=== PATIENT | male | born 1955 | race Caucasian/White ===

== ENCOUNTER 2017-12-03 11:44 | Observation (INO) ==
--- NOTE | 2017-12-03 11:56 | Emergency Department Note ---
Disposition Clinical Impression: Acute and chronic respiratory failure with hypercapnia COPD (chronic obstructive pulmonary disease) Qualifiers: COPD type: COPD with acute exacerbation Qualified Code(s): J44.1 - Chronic obstructive pulmonary disease with (acute) exacerbation Disposition: Admitted As Inpatient Condition: Fair SOB HPI - General Chief Complaint: ED Shortness of Breath/Dyspnea Stated Complaint: Low O2 Source: patient, family, EMS Mode of arrival: EMS Limitations: no limitations Nursing Notes Reviewed: Yes Vital Signs Reviewed: Yes - History of Present Illness Patient presents to the ED via EMS with report of being more short of breath and lethargic over the past several days according to his . She states that he has not been wearing his 2 L of oxygen continuously or wearing his BiPAP over the past 3 days. She has noticed his breathing has become more labored and has gotten progressively more lethargic. is also concerned because patient had a high ammonia level a few days ago when he had outpatient labs performed [facility] the [facility] and was just started back on lactulose. She states he was just admitted to the [facility] in [place] 3 weeks ago after COPD exacerbation. He said several admissions earlier this year for pneumonia and COPD exacerbations as well with similar presentations. He has a history of CHF along with COPD, diabetes, cirrhosis CAD and hypertension. Patient himself states he simply "feels bad". He specifically denies any shortness of breath or chest pain. No lightheadedness or dizziness. No abdominal pain, nausea, vomiting or diarrhea. He denies any fever or chills. No recent travel or sick contacts. Per EMS patient's oxygen saturations were in the 70s on room air when they arrived. He was put on 3 L of oxygen with improvement into the low 90s by the time he arrived in the ED. - Related Data Home Medications Medication Instructions Recorded Confirmed Cholecalciferol (Vitamin D3) 1,000 unit PO BID 09/19/15 12/03/17 [Vitamin D3] Magnesium 400 mg PO BID 09/19/15 12/03/17 Cyanocobalamin (Vitamin B-12) 1,000 mcg PO BID 10/07/16 12/03/17 [Vitamin B12] Loratadine [Allergy Relief] 10 mg PO DAILY 10/07/16 12/03/17 Omeprazole 20 mg PO DAILY 10/07/16 12/03/17 Tiotropium [Spiriva] 18 mcg IH DAILY 10/07/16 12/03/17 Albuterol Sulfate [Ventolin Hfa] 1 puff IH Q4H PRN 10/08/16 12/03/17 Lactulose 10 gm PO DAILY PRN 10/08/16 12/03/17 Multivitamin-Min/Iron/FA/Vit K 1 each PO DAILY 10/08/16 12/03/17 [Multi-Day Plus Minerals Tablet] levETIRAcetam [Keppra] 250 mg PO Q12H 05/01/17 12/03/17 Lisinopril [Zestril] 10 mg PO DAILY 06/18/17 12/03/17 Memantine HCl 10 mg PO BID 08/30/17 12/03/17 Oxycodone HCl [Oxaydo] 5 mg PO Q6H 08/30/17 12/03/17 Potassium Gluconate [Potassium] 99 mg PO DAILY 08/30/17 12/03/17 Zinc Sulfate [Zinc-15] 66 mg PO BID 08/30/17 12/03/17 Previous Rx's Medication Instructions Recorded Budesonide/Formoterol 80/4.5 2 puff IH BIDR #2 inhaler 09/21/15 [Symbicort 80/4.5] Aspirin 81 mg PO DAILY tab.chew 03/11/17 Atorvastatin [Lipitor] 40 mg PO HS tablet 03/11/17 Bisacodyl [Dulcolax] 10 mg PO DAILY PRN tablet 03/11/17 Metoprolol [Lopressor] 75 mg PO BID tablet 03/11/17 Furosemide [Lasix] 20 mg PO DAILY PRN #30 tablet 06/24/17 Insulin DETEMIR [Levemir] 25 unit SQ BID [id number] 06/24/17 Allergies Allergy/AdvReac Type Severity Reaction Status Date / Time No Known Allergies Allergy Verified 09/19/15 17:09 Constitutional: Denies: fever, chills, weakness, weight change Eyes: Denies: eye pain, eye discharge, vision change ENT ED: Denies: ear pain, throat pain, dental pain, hearing loss, epistaxis, congestion, dysphagia Cardiovascular: Denies: chest pain, palpitations, dyspnea on exertion, edema, syncope Respiratory: Reports: dyspnea. Denies: cough, wheezes, hemoptysis, stridor Gastrointestinal: Denies: abdominal pain, nausea, vomiting, diarrhea, constipation, hematemesis, melena, hematochezia Genitourinary: Denies: urgency, dysuria, frequency, hematuria Musculoskeletal: Denies: back pain, neck pain, arthralgia, myalgia Integumentary: Denies: rash, abrasion, lesions Neurological: Reports: as per HPI, other (lethargy) Psychiatric: Denies: anxiety, depression, suicidal thoughts, homicidal thoughts , auditory hallucinations, visual hallucinations Endocrine: Denies: fatigue Hematological/Lymphatic: Denies: easy bleeding, easy bruising Allergic/Immunologic: Denies: facial swelling, urticaria Past Medical History - Past Medical History Medical history: Reports: cirrhosis, CHF, COPD, coronary artery disease, diabetes, hepatitis, hyperlipidemia, hypertension, liver disease, myocardial infarction, other Surgical history: Reports: cholecystectomy, orthopedic, other Psychiatric history: Reports: anxiety, depression - Social History Smoking Status: Former smoker Smokeless Tobacco Status: No Alcohol use: Reports: none Drug use: Reports: none Physical Exam - General Limitations: no limitations General appearance: alert, in no apparent distress, lethargic - Head Head exam: atraumatic, normocephalic, normal inspection - Eye Eye exam: Present: normal appearance, PERRL, EOMI - ENT ENT exam: normal exam, normal oropharynx, mucous membranes moist - Neck Neck exam: Present: normal inspection, full ROM, trachea midline - Chest Chest inspection: Present: normal inspection, symmetric chest wall rise - Respiratory Respiratory exam: Absent: respiratory distress - Expanded Respiratory Exam Location: decreased breath sounds: Left, Right, Upper, Lower - Cardiovascular Cardiovascular exam: Present: regular rate, normal rhythm, normal heart sounds - Abdominal Exam Abdominal exam: Present: soft, Non-Tender. Absent: tenderness, distention, guarding, rebound, rigidity - Extremities Exam Extremities exam: Present: normal inspection, full ROM. Absent: tenderness, pedal edema - Back Exam Back exam: Present: normal inspection, full ROM. Absent: tenderness - Neurological Exam Neurological exam: Present: alert - Expanded Neurological Exam Patient oriented to: Present: person, place Speech: Present: fluid speech Motor strength - LUE: 5/5 Motor strength - RUE: 5/5 Motor strength - LLE: 5/5 Motor strength - RLE: 5/5 Coma Scale Eye Opening: Spontaneous Coma Scale Motor Response: Obeys Commands Coma Scale Verbal Response: Confused Coma Scale Total: 14 - Psychiatric Psychiatric exam: Present: normal affect, normal mood - Skin Skin exam: Present: warm, dry, intact, pallor Course Course Narrative: Patient presents to the ED with report of increasing shortness of breath and lethargy over the past several days after not wearing his home oxygen continuously using his BiPAP machine. History is also concerning for recent high ammonia levels, presumably due to his cirrhosis given his increased lethargy. Oxygen saturation remains in the mid 90s on 4 L the patient has diminished lung sounds with poor aeration. Will give a nebulizer treatment while laboratory studies, including ABG, and chest x-ray are obtained. - Reevaluation(s) Reevaluation #1: Laboratory studies show no leukocytosis or electrolyte abnormalities. Troponin , BNP and ammonia levels are all within normal limits. His ABG however shows a mixed respiratory acidosis and metabolic alkalosis with pH is 7.36, PCO2 of 86, bicarbonate 49 and PO2 of 77. Patient does have a history of chronic hypercapnia and has had PCO2 levels over 100 in the past but appears to typically run in the 60s. Will place patient on BiPAP. He will require admission for what is likely a mild COPD exacerbation on top of acute on chronic respiratory failure due to hypercapnia. Time: 12:45 Reevaluation #2: Patient reports feeling slightly better after being on BiPAP for an extended period of time. Repeat ABG was inadvertently a venous sample. There was improvement on his PCO2 into the 70s but given his persistent hypercapnia patient will require admission for continued treatment. [facility] is a client [facility]. Will check with local [facility] for any bed availability. Reevaluation #3: Patient was declined by [facility] due to requiring BiPAP. The [facility] system is currently on bypass due to no bed availability. Discussed with patient staying here versus contacting additional further facilities and patient is agreeable to being admitted to this facility. I feel that he is stable enough for this facility. Will contact the hospitalist to discuss possible admission versus transfer. Additional Reevaluation(s): I spoke to the hospitalist on-call, Dr. Murry who has agreed to accept the patient. We will continue on BiPAP at this time. Patient updated on plan. Vital Signs Temperature 98.2 F 12/03/17 11:47 Pulse Rate 83 12/03/17 11:47 Respiratory Rate 16 12/03/17 11:47 Blood Pressure 102/79 12/03/17 11:47 O2 Sat by Pulse Oximetry 94 12/03/17 11:47 Temperature 98.3 F 12/04/17 00:00 Pulse Rate 63 12/04/17 00:00 Respiratory Rate 18 12/04/17 00:00 Blood Pressure 109/70 12/04/17 00:00 O2 Sat by Pulse Oximetry 97 12/04/17 00:00 Oxygen Delivery Oxygen Delivery Bipap Shortness of Breath/Dyspnea - Differential Diagnosis Likely: acute exacerbation of chronic obstructive airways disease, congestive heart failure, pneumonia - Medical Records Medical records reviewed: Yes I reviewed the patient's medical records. - Lab Data Lab results reviewed: Yes I reviewed the patient's lab results. Result diagrams: 12/03/17 11:57 12/03/17 11:57 Lab Results 12/03/17 12/03/17 12/03/17 Range/Units 11:57 11:57 11:57 WBC 8.0 (4.3-11.1) K/mcL RBC 4.03 L (4.19-5.50) M/mcL Hgb 11.4 L (12.9-16.9) g/dL Hct 37.6 (37.5-50.1) % MCV 93.3 (83.0-100.0) fL MCH 28.3 (28.0-33.3) pg MCHC 30.3 L (31.6-35.5) g/dL RDW 14.0 (11.5-14.5) % Plt Count 246 (140-400) K/mcL MPV 9.8 (9.4-12.4) fL Immature Gran % 0.4 (0-4) % Seg Neutrophils % 66.5 % Lymphocytes % 21.8 % Monocytes % 8.1 % Eosinophils % 2.7 % Basophils % 0.5 % Neutrophils # 5.3 (1.6-8.9) K/mcL Lymphocytes # 1.8 (0.6-4.6) K/mcL Monocytes # 0.7 (0.0-1.3) K/mcL Eosinophils # 0.2 (0.0-0.6) K/mcL Basophils # 0.0 (0.0-0.2) K/mcL ABG pH (7.32-7.45) pH Units ABG pCO2 (35-45) mmHg ABG pO2 (85-104) mmHg ABG HCO3 (21-27) mEq/L ABG Total CO2 (20-26) mEq/L ABG O2 Saturation (95-98) % ABG Base Excess (-2 to 3) mEq/L Sodium 142 (136-145) mEq/L Potassium 3.7 (3.5-5.1) mEq/L Chloride 96 L (98-107) mEq/L Carbon Dioxide 42 H* (23-29) mEq/L BUN 14 (8-23) mg/dL Creatinine 0.78 (0.70-1.30) mg/dL Est GFR ( Amer) > 60 (> 60) Est GFR (Non-Af Amer) > 60 (> 60) BUN/Creatinine Ratio 18 (6-26) Glucose 174 H (70-105) mg/dL Calculated Osmolality 299 (280-300) Lactic Acid 0.9 (0.5-2.2) mmol/L Calcium 8.3 L (8.6-10.3) mg/dL Ammonia (16-53) mcmol/L Troponin I < 0.03 (< 0.04) ng/mL B-Natriuretic Peptide (Less than 100) pg/mL Person Notif of Crit 12/03/17 12/03/17 12/03/17 Range/Units 11:57 11:57 12:12 WBC (4.3-11.1) K/mcL RBC (4.19-5.50) M/mcL Hgb (12.9-16.9) g/dL Hct (37.5-50.1) % MCV (83.0-100.0) fL MCH (28.0-33.3) pg MCHC (31.6-35.5) g/dL RDW (11.5-14.5) % Plt Count (140-400) K/mcL MPV (9.4-12.4) fL Immature Gran % (0-4) % Seg Neutrophils % % Lymphocytes % % Monocytes % % Eosinophils % % Basophils % % Neutrophils # (1.6-8.9) K/mcL Lymphocytes # (0.6-4.6) K/mcL Monocytes # (0.0-1.3) K/mcL Eosinophils # (0.0-0.6) K/mcL Basophils # (0.0-0.2) K/mcL ABG pH 7.36 (7.32-7.45) pH Units ABG pCO2 86 H* (35-45) mmHg ABG pO2 77 L (85-104) mmHg ABG HCO3 49 H (21-27) mEq/L ABG Total CO2 51 H (20-26) mEq/L ABG O2 Saturation 93 L (95-98) % ABG Base Excess 19 H (-2 to 3) mEq/L Sodium (136-145) mEq/L Potassium (3.5-5.1) mEq/L Chloride (98-107) mEq/L Carbon Dioxide (23-29) mEq/L BUN (8-23) mg/dL Creatinine (0.70-1.30) mg/dL Est GFR ( Amer) (> 60) Est GFR (Non-Af Amer) (> 60) BUN/Creatinine Ratio (6-26) Glucose (70-105) mg/dL Calculated Osmolality (280-300) Lactic Acid (0.5-2.2) mmol/L Calcium (8.6-10.3) mg/dL Ammonia 45 (16-53) mcmol/L Troponin I (< 0.04) ng/mL B-Natriuretic Peptide 54 (Less than 100) pg/mL Person Notif of Narda WAGONER 12/03/17 Range/Units 14:25 WBC (4.3-11.1) K/mcL RBC (4.19-5.50) M/mcL Hgb (12.9-16.9) g/dL Hct (37.5-50.1) % MCV (83.0-100.0) fL MCH (28.0-33.3) pg MCHC (31.6-35.5) g/dL RDW (11.5-14.5) % Plt Count (140-400) K/mcL MPV (9.4-12.4) fL Immature Gran % (0-4) % Seg Neutrophils % % Lymphocytes % % Monocytes % % Eosinophils % % Basophils % % Neutrophils # (1.6-8.9) K/mcL Lymphocytes # (0.6-4.6) K/mcL Monocytes # (0.0-1.3) K/mcL Eosinophils # (0.0-0.6) K/mcL Basophils # (0.0-0.2) K/mcL ABG pH 7.40 (7.32-7.45) pH Units ABG pCO2 75 H* (35-45) mmHg ABG pO2 26 L* D (85-104) mmHg ABG HCO3 46 H (21-27) mEq/L ABG Total CO2 48 H (20-26) mEq/L ABG O2 Saturation 43 L (95-98) % ABG Base Excess 17 H (-2 to 3) mEq/L Sodium (136-145) mEq/L Potassium (3.5-5.1) mEq/L Chloride (98-107) mEq/L Carbon Dioxide (23-29) mEq/L BUN (8-23) mg/dL Creatinine (0.70-1.30) mg/dL Est GFR ( Amer) (> 60) Est GFR (Non-Af Amer) (> 60) BUN/Creatinine Ratio (6-26) Glucose (70-105) mg/dL Calculated Osmolality (280-300) Lactic Acid (0.5-2.2) mmol/L Calcium (8.6-10.3) mg/dL Ammonia (16-53) mcmol/L Troponin I (< 0.04) ng/mL B-Natriuretic Peptide (Less than 100) pg/mL Person Notif of [facility] - Radiology Data Radiology results reviewed: Yes I reviewed the patient's radiology results. ITS Impressions Chest X-Ray 12/03/17 11:55 IMPRESSION: Stable elevation of the right hemidiaphragm with overlying atelectasis/ scarring and small right pleural effusion. No acute cardiopulmonary disease. D/ / Madi Martinez MD / Madi Martinez MD Interpreting Provider: Madi Martinez MD - EKG Data EKG attestation: Yes I reviewed and interpreted this EKG. EKG shows normal: Reports: sinus rhythm Rate: Reports: normal Rhythm: Reports: NSR [place]/QRS: Reports: normal Interpretation: Reports: no acute changes, normal EKG
[2017-12-03 12:07] LABS: Basophils % 0.5 %; Eosinophils # 0.2 K/mcL (0.0-0.6); Eosinophils % 2.7 %; Hematocrit 37.6 % (37.5-50.1); Hemoglobin 11.4 g/dL (12.9-16.9); Immature Granulocytes % 0.4 % (0-4); Lymphocytes # 1.8 K/mcL (0.6-4.6); Lymphocytes % 21.8 %; Mean Corpuscular HGB Conc 30.3 g/dL (31.6-35.5); Mean Corpuscular Hemoglobin 28.3 pg (28.0-33.3); Mean Corpuscular Volume 93.3 fL (83.0-100.0); Mean Platelet Volume 9.8 fL (9.4-12.4); Monocytes # 0.7 K/mcL (0.0-1.3); Monocytes % 8.1 %; Neutrophils # 5.3 K/mcL (1.6-8.9); Platelet Count 246 K/mcL (140-400); Red Blood Count 4.03 M/mcL (4.19-5.50); Segmented Neutrophils % 66.5 %
[2017-12-03 12:30] LABS: ABG Base Excess 19 mEq/L (-2 to 3); ABG HCO3 49 mEq/L (21-27); ABG Oxygen Saturation 93 % (95-98); ABG PCO2 86 mmHg (35-45); ABG PH 7.36 pH Units (7.32-7.45); ABG PO2 77 mmHg (85-104); ABG TCO2 51 mEq/L (20-26)
[2017-12-03 12:35] LABS: BUN/Creatinine Ratio 18 (6-26); Blood Urea Nitrogen 14 mg/dL (8-23); Calcium 8.3 mg/dL (8.6-10.3); Carbon Dioxide 42 mEq/L (23-29); Chloride 96 mEq/L (98-107); Glucose 174 mg/dL (70-105); Osmolality,Calculated 299 (280-300); Potassium 3.7 mEq/L (3.5-5.1); Sodium 142 mEq/L (136-145); Troponin I < 0.03 ng/mL (< 0.04); eGFR For African Americans > 60 (> 60); eGFR For Non-African Americans > 60 (> 60)
[2017-12-03 14:35] LABS: ABG Base Excess 17 mEq/L (-2 to 3); ABG HCO3 46 mEq/L (21-27); ABG Oxygen Saturation 43 % (95-98); ABG PCO2 75 mmHg (35-45); ABG PO2 26 mmHg (85-104); ABG TCO2 48 mEq/L (20-26)
[2017-12-03] MEDS ORDERED: Naloxone 0.4 MG/ML INJ IVP PRN ×2 (16:08→16:44)
[2017-12-03] MEDS ORDERED: D5% in Water 1,000 ML IVC PRN (16:44)
[2017-12-03] MEDS ORDERED: Dextrose Gel 15 GM/37.5 ML TUBE PO PRN ×2 (16:44)
[2017-12-03] MEDS ORDERED: *HR* Dextrose 50 % in Water (Syg) 50 ML SYRINGE IVP PRN (16:44)
[2017-12-03] MEDS ORDERED: Lactulose 200 GM/300 ML (for enema) RC SCH (17:00)
[2017-12-03] MEDS: Insulin LISPRO 300 UNITS/3 ML VIAL SQ SCH (17:58)
[2017-12-03] MEDS ORDERED: *HR* OxyCODONE Immed Rel 5 MG TABLET PO SCH (18:00)
[2017-12-03] MEDS: Lactulose Oral Soln 20 GM/30 ML UDC PO SCH ×2 (19:54→23:58)
[2017-12-03] MEDS: *HR* OxyCODONE Immed Rel 5 MG TABLET PO PRN (20:05)
[2017-12-03] MEDS ORDERED: Insulin LISPRO 300 UNITS/3 ML VIAL SQ SCH (21:00)
[2017-12-03] MEDS: Magnesium Oxide 400 MG TABLET PO SCH (22:18)
[2017-12-03] MEDS: Cyanocobalamin (B-12) 1,000 MCG TABLET PO SCH (22:18)
[2017-12-03] MEDS: Cholecalciferol (D-3) 1,000 UNIT TABLET PO SCH (22:19)
[2017-12-03] MEDS: Insulin DETEMIR 100 UNIT/ML X5UNITS SQ SCH (22:19)
[2017-12-03] MEDS: levETIRAcetam 250 MG TABLET PO SCH (22:19)
[2017-12-03] MEDS: Budesonide/Formoterol 80/4.5 MDI IH SCH (22:26)
[2017-12-04] MEDS: *HR* OxyCODONE Immed Rel 5 MG TABLET PO PRN ×2 (04:00→09:55)
[2017-12-04] MEDS: Lactulose Oral Soln 20 GM/30 ML UDC PO SCH (05:59)
[2017-12-04] MEDS ORDERED: *HR* Heparin 5,000 UNIT/ML VIAL SQ SCH (06:00)
[2017-12-04] MEDS: Insulin LISPRO 300 UNITS/3 ML VIAL SQ SCH (08:15)
[2017-12-04] MEDS: Budesonide/Formoterol 80/4.5 MDI IH SCH (08:15)
[2017-12-04] MEDS: Magnesium Oxide 400 MG TABLET PO SCH (08:16)
[2017-12-04] MEDS: levETIRAcetam 250 MG TABLET PO SCH (08:16)
[2017-12-04] MEDS: Cholecalciferol (D-3) 1,000 UNIT TABLET PO SCH (08:16)
[2017-12-04] MEDS: Cyanocobalamin (B-12) 1,000 MCG TABLET PO SCH (08:16)
[2017-12-04] MEDS ORDERED: Zinc Sulfate 220 MG CAPSULE PO SCH (09:00)
[2017-12-04] MEDS ORDERED: Furosemide 20 MG TABLET PO PRN (09:00)
[2017-12-04] MEDS ORDERED: Multivit/Ca/Min/Fe/FA 1 TAB TABLET PO SCH (09:00)
[2017-12-04] MEDS ORDERED: Tiotropium 18 MCG inhalation IH SCH (09:00)
[2017-12-04] MEDS ORDERED: Loratadine 10 MG TABLET PO SCH (09:00)
[2017-12-04] MEDS ORDERED: Aspirin 81 MG TAB.CHEW PO SCH (09:00)
[2017-12-04] MEDS ORDERED: (Potassium Gluconate [Potassium] 99 MG) PO SCH (09:00)
[2017-12-04] MEDS: Insulin DETEMIR 100 UNIT/ML X5UNITS SQ SCH (09:56)
--- NOTE | 2017-12-04 10:07 | Internal Med History&Physical ---
Date of Encounter: 12/04/17 Time of Encounter: 10:03 Assessment and Plan (1) COPD (chronic obstructive pulmonary disease) Current visit: Yes Status: Acute continue O2, BiPAP and inhaled meds. stable. Qualifiers: COPD type: COPD with acute exacerbation Qualified Code(s): J44.1 - Chronic obstructive pulmonary disease with (acute) exacerbation (2) Diabetes mellitus, type II Current visit: Yes Status: Chronic controlled. monitor FSBS. will adjust meds as necessary. 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 monitor BP Qualifiers: Hypertension type: essential hypertension Qualified Code(s): I10 - Essential (primary) hypertension Internal Medicine - H&P: HPI Admitted From: Emergency Dept Plans for Post Hospital Care: Home History of present illness: Mr. Phillips is a 62 year old male transfered to inpatient unit after presenting to the ED last night with SOB and lethargy. started approx 3 days ago. has not been wearing BiPAP or O2 for the past few days. was admitted to the [facility] 3 weeks ago for COPD exacerbation. has also had several admissions since the begining of the year for COPD and PNA. history of CHF, DM, cirrhosis , CAD and HTN. former smoker. denies SOB, chest pain and cough. denies fever , chills, NVD. states he feels like he is at baseline. states he knows he should wear his O2 and BiPAP. Past Med Surg Social Fam HX - Past Medical History Medical history: cirrhosis, CHF, COPD, coronary artery disease, diabetes, hepatitis, hyperlipidemia, hypertension, liver disease, myocardial infarction, other Additional medical history: chronic back pain, hepatitis C Psychiatric history: anxiety, depression - Past Surgical History Surgical History: cholecystectomy, orthopedic, other Additional surgical history: stent in gallbladder/liver stent, hemerrhoid surgery - Social History Smoking Status: Former smoker Packs per day: 1and 1/2 Smokeless Tobacco Status: No Alcohol use: none Drug use: none - Family History Mother Living Status: Still Living Hx Family Endocrine Disorder: Yes (DM) Father History Unknown: Yes Living Status: Still Living Hx Family Cardiac Disorders: Yes ([place], CABG) Hx Family Endocrine Disorder: Yes (DM) Internal Medicine - H&P: Meds Cholecalciferol (Vitamin D3) [Vitamin D3] 1,000 unit PO BID 09/19/15 [History] Magnesium 400 mg PO BID 09/19/15 [History] Budesonide/Formoterol 80/4.5 [Symbicort 80/4.5] 2 puff IH BIDR #2 inhaler 09/20 [Rx] Cyanocobalamin (Vitamin B-12) [Vitamin B12] 1,000 mcg PO BID 10/07/16 [History] Loratadine [Allergy Relief] 10 mg PO DAILY 10/07/16 [History] Omeprazole 20 mg PO DAILY 10/07/16 [History] Tiotropium [Spiriva] 18 mcg IH DAILY 10/07/16 [History] Albuterol Sulfate [Ventolin Hfa] 1 puff IH Q4H PRN 10/08/16 [History] Lactulose 10 gm PO DAILY PRN 10/08/16 [History] Multivitamin-Min/Iron/FA/Vit K [Multi-Day Plus Minerals Tablet] 1 each PO DAILY 10/08/16 [History] Aspirin 81 mg PO DAILY tab.chew 03/11/17 [Rx] Atorvastatin [Lipitor] 40 mg PO HS tablet 03/11/17 [Rx] Bisacodyl [Dulcolax] 10 mg PO DAILY PRN tablet 03/11/17 [Rx] Metoprolol [Lopressor] 75 mg PO BID tablet 03/11/17 [Rx] levETIRAcetam [Keppra] 250 mg PO Q12H 05/01/17 [History] Lisinopril [Zestril] 10 mg PO DAILY 06/18/17 [History] Furosemide [Lasix] 20 mg PO DAILY PRN #30 tablet 06/24/17 [Rx] Insulin DETEMIR [Levemir] 25 unit SQ BID [id number] 06/24/17 [Rx] Memantine HCl 10 mg PO BID 08/30/17 [History] Oxycodone HCl [Oxaydo] 5 mg PO Q6H 08/30/17 [History] Potassium Gluconate [Potassium] 99 mg PO DAILY 08/30/17 [History] Zinc Sulfate [Zinc-15] 66 mg PO BID 08/30/17 [History] 3 Allergy/AdvReac Type Severity Reaction Status Date / Time No Known Allergies Allergy Verified 09/19/15 17:09 All Systems PM: A 10-system review of systems was performed and is negative for pertinent findings except as documented above in the HPI. - Constitutional Constitutional: no chills, no fever(s), no night sweats - EENT Eyes: no change in vision, no discharge, no pain, no photophobia Ears: no ear discharge, no ear pain, no tinnitus Nose, mouth and throat: no dysphagia, no nasal discharge, no neck pain, no sore throat - Cardiovascular Cardiovascular ROS IM: no chest pain, no diaphoresis, no dyspnea, no lightheadedness, no palpitations, no syncope - Respiratory Respiratory: no cough, no dyspnea, no wheezing, no excessive phlegm production - Gastrointestinal Gastrointestinal: no abdominal pain, no diarrhea, no hematemesis, no hematochezia, no melena, no nausea, no vomiting - Musculoskeletal Musculoskeletal ROS IM: no numbness, no tingling - Integumentary Integumentary IM: no rash, no unusual bruising - Neurological Neurological ROS: no confusion, no convulsions, no focal weakness, no numbness, no tingling, no tremor(s) - Hematologic/Lymphatic Hematologic/Lymphatic: no easy bruising - Constitutional Vitals: Temp Pulse Resp BP Pulse Ox 98.2 F 97 17 140/74 94 12/04/17 07:26 12/04/17 07:26 12/04/17 07:26 12/04/17 07:26 12/04/17 07:26 General appearance: Present: cooperative, A&O X 3, pleasant, no acute distress, answers questions appropriately - Head Head exam: Present: atraumatic, normocephalic - Eye Eye exam: Present: PERRL, conjuntiva pink, sclera anicteric Pupils: Present: PERRL - Neck Neck exam general surgery: Present: supple, trachea midline. Absent: lymphadenopathy - Respiratory Respiratory exam: Present: CTAB. Absent: accessory muscle use, rales, rhonchi, wheezes - Cardiovascular Cardiovascular exam: Present: RRR, +S1, +S2. Absent: diastolic murmur, gallop, rubs, systolic murmur - GI/Abdominal GI/Abdominal exam: Present: normal bowel sounds, soft, no peritoneal signs. Absent: distended, tenderness - Extremities Exam Extremities exam: Present: warm, radial pulses palpable and symmetrical. Absent : calf tenderness, cyanotic, pedal edema - Neurological Exam Neurological exam: Present: CN II-XII intact, oriented X3, no focal deficits. Absent: pronater drift, facial droop, speech deficit - Skin Skin exam: Present: dry, intact Internal Med - H&P Results - Labs CBC & Chem 7: 12/03/17 11:57 12/03/17 11:57 - VTE Reasons for not Prescribing Prophylaxis: Treatment not Indicated - Low risk for VTE
[2017-12-04 11:51] VITALS: BP 114/70
--- NOTE | 2017-12-04 12:08 | Discharge Summary ---
Date of Encounter: 12/04/17 Time of Encounter: 12:04 - Discharge Diagnosis (1) COPD (chronic obstructive pulmonary disease) Priority: Primary Status: Acute Comments: continue O2 and Bipap. continue inhaled meds. f/u with PCP. Qualifiers: COPD type: COPD with acute exacerbation Qualified Code(s): J44.1 - Chronic obstructive pulmonary disease with (acute) exacerbation (2) Diabetes mellitus, type II Priority: Secondary Status: Chronic Comments: conttolled. continue current meds. f/u with PCP. Qualifiers: Diabetes mellitus middle or intermediate [employer] principal insulin use: with retirement use Diabetes mellitus complication status: with circulatory complication Diabetes mellitus complication detail: with other circulatory complications Qualified Code(s): E11.59 - Type 2 diabetes mellitus with other circulatory complications; Z79.4 - care home (current) use of insulin; Z79.4 - care home (current) use of insulin; Z79.4 - care home (current) use of insulin; Z79.4 - care home (current) use of insulin (3) Hypertension Priority: Secondary Status: Chronic Comments: controlled with current meds. f/u with PCP. Qualifiers: Hypertension type: essential hypertension Qualified Code(s): I10 - Essential (primary) hypertension Hospital course: Mr. Phillips is a 62 year old male discharging to home with . educated importance of wearing o2 and Bipap. f/u with PCP and client relations representative. - Time Spent with Patient Total time spent providing and/or coordinating discharge services: - Discharge Medications Home Medications: Cholecalciferol (Vitamin D3) [Vitamin D3] 1,000 unit PO BID 09/19/15 [History] Magnesium 400 mg PO BID 09/19/15 [History] Budesonide/Formoterol 80/4.5 [Symbicort 80/4.5] 2 puff IH BIDR #2 inhaler 09/20 [Rx] Cyanocobalamin (Vitamin B-12) [Vitamin B12] 1,000 mcg PO BID 10/07/16 [History] Loratadine [Allergy Relief] 10 mg PO DAILY 10/07/16 [History] Omeprazole 20 mg PO DAILY 10/07/16 [History] Tiotropium [Spiriva] 18 mcg IH DAILY 10/07/16 [History] Albuterol Sulfate [Ventolin Hfa] 1 puff IH Q4H PRN 10/08/16 [History] Lactulose 10 gm PO DAILY PRN 10/08/16 [History] Multivitamin-Min/Iron/FA/Vit K [Multi-Day Plus Minerals Tablet] 1 each PO DAILY 10/08/16 [History] Aspirin 81 mg PO DAILY tab.chew 03/11/17 [Rx] Atorvastatin [Lipitor] 40 mg PO HS tablet 03/11/17 [Rx] Bisacodyl [Dulcolax] 10 mg PO DAILY PRN tablet 03/11/17 [Rx] Metoprolol [Lopressor] 75 mg PO BID tablet 03/11/17 [Rx] levETIRAcetam [Keppra] 250 mg PO Q12H 05/01/17 [History] Lisinopril [Zestril] 10 mg PO DAILY 06/18/17 [History] Furosemide [Lasix] 20 mg PO DAILY PRN #30 tablet 06/24/17 [Rx] Insulin DETEMIR [Levemir] 25 unit SQ BID [id number] 06/24/17 [Rx] Memantine HCl 10 mg PO BID 08/30/17 [History] Oxycodone HCl [Oxaydo] 5 mg PO Q6H 08/30/17 [History] Potassium Gluconate [Potassium] 99 mg PO DAILY 08/30/17 [History] Zinc Sulfate [Zinc-15] 66 mg PO BID 08/30/17 [History] Insulin LISPRO [HumaLOG] 0 units SQ HS vial 12/04/17 [Rx] Insulin LISPRO [HumaLOG] 0 units SQ TIDAC vial 12/04/17 [Rx] Lactulose 15 gm PO Q6HR udc 12/04/17 [Rx] Allergies/Adverse Reactions: 3 Allergy/AdvReac Type Severity Reaction Status Date / Time No Known Allergies Allergy Verified 09/19/15 17:09 Date of admission: 12/03/17 16:07 Primary care physician: [facility] Discharging clinician: Morgan Murry Anticipated date of discharge: 12/04/17 - Constitutional Vitals: Temp Pulse Resp BP Pulse Ox 98.2 F 76 16 114/70 91 12/04/17 11:48 12/04/17 11:48 12/04/17 11:48 12/04/17 11:48 12/04/17 11:48 General appearance: Present: cooperative, A&O X 3, pleasant, no acute distress, answers questions appropriately - Head Head exam: Present: atraumatic, normocephalic - Eye Eye exam: Present: PERRL, conjuntiva pink, sclera anicteric Pupils: Present: PERRL - Neck Neck exam general surgery: Present: supple, trachea midline. Absent: lymphadenopathy - Respiratory Respiratory exam: Present: decreased breath sounds, CTAB. Absent: accessory muscle use, rales, rhonchi, wheezes - Cardiovascular Cardiovascular exam: Present: RRR, +S1, +S2. Absent: diastolic murmur, gallop, rubs, systolic murmur - GI/Abdominal GI/Abdominal exam: Present: normal bowel sounds, soft, no peritoneal signs. Absent: distended, tenderness - Extremities Exam Extremities exam: Present: warm, radial pulses palpable and symmetrical. Absent : calf tenderness, cyanotic, pedal edema - Neurological Exam Neurological exam: Present: CN II-XII intact, oriented X3, no focal deficits. Absent: pronater drift, facial droop, speech deficit - Skin Skin exam: Present: dry, intact - Patient Status Disposition: Home, Self-Care Condition: Good Functional capacity at discharge: independent ambulation Overall status at discharge: patient is back to baseline - Discharge Instructions Follow Up With: [facility] [Primary Care Provider] - - Diet and Activity Activity: increase activity as tolerated, wear oxygen at all times Diet: advance to your usual diet - VTE Reasons for not Prescribing Prophylaxis: Treatment not Indicated - Low risk for VTE
--- NOTE | 2017-12-04 17:25 | Electrocardiograph Report ---
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
== END 2017-12-04 13:53 | disposition home or self-care (01) ==
LOC: EMEROOGRE 11:44 → INPGRE 11:44

== ENCOUNTER 2020-11-18 12:05 | Observation (INO) ==
[2020-11-18 12:47] LABS: Eosinophils # 0.1 K/mcL (0.0-0.6); Hemoglobin 9.7 g/dL (12.9-16.9); Immature Granulocytes % 0.3 % (0-4); Lymphocytes # 1.1 K/mcL (0.6-4.6); Mean Corpuscular HGB Conc 28.5 g/dL (31.6-35.5); Mean Corpuscular Hemoglobin 26.6 pg (28.0-33.3); Mean Corpuscular Volume 93.2 fL (83.0-100.0); Mean Platelet Volume 10.4 fL (9.4-12.4); Monocytes # 0.5 K/mcL (0.0-1.3); Neutrophils # 6.8 K/mcL (1.6-8.9); Platelet Count 275 K/mcL (140-400); Red Blood Count 3.65 M/mcL (4.19-5.50); Red Cell Distribution Width 16.1 % (11.5-14.5); White Blood Count 8.6 K/mcL (4.3-11.1)
[2020-11-18 13:00] LABS: BUN/Creatinine Ratio 42 (6-26); Blood Urea Nitrogen 35 mg/dL (8-23); Calcium 9.7 mg/dL (8.6-10.3); Carbon Dioxide > 45 mEq/L (23-29); Chloride 93 mEq/L (98-107); Glucose 203 mg/dL (70-105); Osmolality,Calculated 316 (280-300); Potassium 4.2 mEq/L (3.5-5.1); Sodium 146 mEq/L (136-145); eGFR For African Americans > 60 (> 60); eGFR For Non-African Americans > 60 (> 60)
[2020-11-18 13:08] LABS: Troponin I < 0.03 ng/mL (< 0.04)
[2020-11-18 13:09] LABS: Hypochromasia Present (Not Present); Platelet Estimate Normal (Normal); Reactive Lymphocytes Present (Not Present)
[2020-11-18 13:22] LABS: VBG HCO3 46 mEq/L (21-27); VBG PCO2 84 mmHg (41-51); VBG PH 7.35 pH Units (7.32-7.42); VBG PO2 41 mmHg (25-50)
[2020-11-18] MEDS ORDERED: Ibuprofen 400 MG TABLET PO PRN (14:01)
[2020-11-18] MEDS ORDERED: Ondansetron 4 MG/2 ML VIAL IVP PRN (14:01)
[2020-11-18] MEDS ORDERED: Naloxone 0.4 MG/ML INJ IVP PRN (14:01)
[2020-11-18] MEDS ORDERED: Fluticasone Propionate Nasal 50 MCG/SPRAY BOTTLE NS PRN (14:06)
[2020-11-18] MEDS ORDERED: *HR* LORazepam 2 MG/ML VIAL IVP ONE (14:06)
[2020-11-18] MEDS ORDERED: Sennosides/Docusate Sodium TABLET PO PRN (14:06)
[2020-11-18] MEDS ORDERED: Ipratropium/Albuterol Neb 3 ML IH PRN (14:06)
[2020-11-18] MEDS ORDERED: D5% in Water 1,000 ML IVC PRN (14:11)
[2020-11-18] MEDS ORDERED: *HR* Dextrose 50 % in Water (Vial) 50 ML VIAL IVP PRN (14:11)
[2020-11-18] MEDS ORDERED: Dextrose Gel 15 GM/37.5 ML TUBE PO PRN ×2 (14:11)
[2020-11-18] MEDS: *HR* LORazepam 2 MG/ML VIAL IVP PRN ×2 (16:06→22:32)
[2020-11-18] MEDS: Insulin LISPRO 300 UNITS/3 ML VIAL SUBQ SCH (17:15)
[2020-11-18] MEDS: Lactulose Oral Soln 20 GM/30 ML UDC PO SCH ×2 (17:36→22:17)
[2020-11-18] MEDS: Budesonide/Formoterol 160/4.5 1 PUFF INH IH SCH (20:15)
[2020-11-18] MEDS: acetaZOLAMIDE 250 MG TABLET PO SCH (20:21)
[2020-11-18] MEDS ORDERED: Insulin DETEMIR 100 UNIT/ML per UNIT SUBQ ONE (21:00)
[2020-11-18] MEDS ORDERED: Melatonin 3 MG TABLET PO SCH (21:00)
[2020-11-18] MEDS ORDERED: Insulin LISPRO 300 UNITS/3 ML VIAL SUBQ SCH (21:00)
[2020-11-18] MEDS: *HR* Heparin 5,000 UNIT/ML VIAL SQ SCH (22:54)
[2020-11-19] MEDS: *HR* Heparin 5,000 UNIT/ML VIAL SQ SCH (04:21)
[2020-11-19] MEDS: *HR* LORazepam 2 MG/ML VIAL IVP PRN (04:22)
[2020-11-19 05:49] LABS: Hematocrit 30.6 % (37.5-50.1); Hemoglobin 8.6 g/dL (12.9-16.9); Mean Corpuscular HGB Conc 28.1 g/dL (31.6-35.5); Mean Corpuscular Hemoglobin 26.3 pg (28.0-33.3); Mean Corpuscular Volume 93.6 fL (83.0-100.0); Platelet Count 196 K/mcL (140-400); Red Blood Count 3.27 M/mcL (4.19-5.50); Red Cell Distribution Width 16.4 % (11.5-14.5); White Blood Count 6.7 K/mcL (4.3-11.1)
[2020-11-19] MEDS: Budesonide/Formoterol 160/4.5 1 PUFF INH IH SCH (07:08)
[2020-11-19 07:13] LABS: BUN/Creatinine Ratio 50 (6-26); Blood Urea Nitrogen 37 mg/dL (8-23); Calcium 9.1 mg/dL (8.6-10.3); Carbon Dioxide 40 mEq/L (23-29); Chloride 96 mEq/L (98-107); Glucose 154 mg/dL (70-105); Magnesium 1.7 mg/dL (1.6-2.6); Osmolality,Calculated 310 (280-300); Potassium 4.5 mEq/L (3.5-5.1); Sodium 144 mEq/L (136-145); eGFR For African Americans > 60 (> 60); eGFR For Non-African Americans > 60 (> 60)
[2020-11-19] MEDS: acetaZOLAMIDE 250 MG TABLET PO SCH (08:55)
[2020-11-19] MEDS: Lactulose Oral Soln 20 GM/30 ML UDC PO SCH (08:56)
[2020-11-19] MEDS ORDERED: Loratadine 10 MG TABLET PO SCH (09:00)
[2020-11-19] MEDS ORDERED: Insulin DETEMIR 100 UNIT/ML X5UNITS SUBQ SCH ×2 (09:00)
[2020-11-19] MEDS ORDERED: Metoprolol XL (24 HR) Succ 25 MG TAB.ER.24H PO SCH (09:00)
[2020-11-19] MEDS ORDERED: Aspirin 81 MG TAB.CHEW PO SCH (09:00)
[2020-11-19] MEDS ORDERED: Furosemide 40 MG TABLET PO SCH (09:00)
[2020-11-19] MEDS ORDERED: polyethylene glycoL 3350 17 GM POWD.PACK PO SCH (09:00)
[2020-11-19] MEDS ORDERED: levETIRAcetam 250 MG TABLET PO SCH (09:00)
[2020-11-19] MEDS: Insulin LISPRO 300 UNITS/3 ML VIAL SUBQ SCH (09:13)
[2020-11-19 13:18] LABS: VBG HCO3 40 mEq/L (21-27); VBG PCO2 68 mmHg (41-51); VBG PH 7.38 pH Units (7.32-7.42); VBG PO2 45 mmHg (25-50)
[2020-11-19 14:50] VITALS: BP 113/71
== END 2020-11-19 15:39 ==
LOC: INPGRE 12:05 → EMEROOGRE 12:05 → INPGRE 15:29
PROVIDERS: ADMIT Family Medicine; ATTEND Family Medicine